=== PATIENT | female | born 1960 | race Caucasian/White ===

== ENCOUNTER 2024-03-04 14:38 | Outpatient (RCR) | payer MEDICARE, OTHER, SELFPAY | END 2024-03-04 23:59 | disposition home or self-care (01) | LOC: RPT 14:38 | PROVIDERS: ATTENDING PHYSICIAN Internal Medicine Rheumatology; FAMILY PHYSICIAN Internal Medicine | DX: M54.16 Radiculopathy, lumbar region (principal); Z73.6 Limitation of activities due to disability; M25.551 Pain in right hip | CPT/HCPCS: 97110; 97162 ==

== ENCOUNTER 2024-04-02 19:13 | Outpatient (RCR) | payer MEDICARE, OTHER, SELFPAY | END 2024-04-02 23:59 | disposition home or self-care (01) | LOC: RPT 19:13 | PROVIDERS: ATTENDING PHYSICIAN Internal Medicine Rheumatology; FAMILY PHYSICIAN Internal Medicine | DX: M54.16 Radiculopathy, lumbar region (principal); Z73.6 Limitation of activities due to disability; M25.551 Pain in right hip | CPT/HCPCS: 97110 ==

== ENCOUNTER 2024-04-23 18:30 | Outpatient (RCR) | payer MEDICARE, OTHER, SELFPAY | END 2024-04-24 13:46 | disposition home or self-care (01) | LOC: RPT 18:30 | PROVIDERS: ATTENDING PHYSICIAN Internal Medicine Rheumatology; FAMILY PHYSICIAN Internal Medicine | DX: M54.16 Radiculopathy, lumbar region (principal); Z73.6 Limitation of activities due to disability; M25.551 Pain in right hip | CPT/HCPCS: 97110 ==

== ENCOUNTER → 2024-08-02 11:19 | Outpatient (REF) | payer MEDICARE, OTHER, SELFPAY | LOC: RAD 11:19 | PROVIDERS: ATTENDING PHYSICIAN Nurse Practitioner Acute Care; FAMILY PHYSICIAN Family Medicine | DX: M47.816 Spondylosis without myelopathy or radiculopathy, lumbar region (principal) | CPT/HCPCS: 72110 ==